=== PATIENT | male | born 1975 | race Caucasian/White ===

== ENCOUNTER 2020-10-20 09:55 | Emergency (ER) | payer BC ==
[~2020-10-20] VITALS: Ht 172.7 cm; Wt 72.6 kg
--- NOTE | 2020-10-20 10:07 | NUR ---
Dr Espinoza at the bedside for MSE.
[2020-10-20 10:17] VITALS: BP 139/87
--- NOTE | 2020-10-20 10:17 | NUR ---
Patient discharged to home in stable condition. Written and verbal after care instructions given. Patient verbalizes understanding of instructions. Stressed follow up or return to ER for worsening s/s.
== END 2020-10-20 10:18 | disposition home or self-care (01) ==
LOC: ER 09:55
DX: K40.90 Unilateral inguinal hernia, without obstruction or gangrene, not specified as recurrent (principal)
CPT/HCPCS: A4663